=== PATIENT | female | born 1950 | race Caucasian/White ===

== ENCOUNTER → 2018-07-30 | Outpatient (CLI) | payer MEDICARE, SELFPAY | END | disposition home or self-care (01) | PROVIDERS: Family Provider Family Medicine; PCP Family Medicine; Visit Provider Family Medicine | DX: G47.33 Obstructive sleep apnea (adult) (pediatric) (principal) | CPT/HCPCS: 95811 ==

== ENCOUNTER 2021-03-30 13:00 | Outpatient (RCR) | payer MEDICARE, SELFPAY ==
--- NOTE | 2021-01-28 15:16 | HP.PTEVAL_ITS ---
Patient's Visit Information PATRICK CEDILLO is a 70 year old F referred to Physical Therapy by Dr. Madeline Sanz MD with a diagnosis of Chronic right shoulder pain, M25.511. Date of Evaluation: 01/28/21 Physical Therapist: Ben Mendoza - Visit Plan Frequency: 2x /Week Duration: 4 Weeks Plan: Continue with improving right shoulder scapular/RTC strength. Use modalities as needed for pain control. - Subjective Pt. is a 70 y.o. female who has been having right shoulder pain off and on for several of years with no specific injury to her shoulder that she is aware of. She does swim which she is not sure if that made it worse. Pt. has not had any recent imaging of her right shoulder. Pt. denies any numbness or tingling in her right arm and denies any neck pain. Pt. is right handed. She has difficulty with reaching overhead, occasionally reaching behind her back, occasionally sleeping, lifting things overhead, pushing/pulling, swimming, housework, and yard work. Pt. is retired and worked in education prior. Her goal with physical therapy is to find a way to eliminate the discomfort. Pt. rates right shoulder pain at 0/10 currently, at worst 6/10 and describes the pain as achy and dull. She does not take any pain medication. Pt. PMH includes appendectomy and right knee arthroscopic surgery. Her hobbies include swimming, hiking, riding bicycle, reading, and gardening. - Objective Palpation- No tenderness to palpation to right shoulder. Neck AROM- WNL for all motions. AROM right shoulder flexion 168 degrees, abduction 164 degrees, ER 80 degrees, IR 74 degrees. AROM left shoulder 165 degrees, abduction 168 degrees, ER 80 degrees, IR 78 degrees. Right shoulder strength flexion 4+/5, abduction 4+/5, ER 4+/5, IR 5/5, elbow flexion 5/5, elbow extension 5/5. Left shoulder strength flexion 5/5, abduction 5/5, ER 5/5, IR 5/5, elbow flexion 5/5, elbow extension 5/5. Special tests- Painful arc [+], Drop arm [-], Lift off [-], Infraspinatus test [+], Hawkin's Adithya [+], Full can/empty can [+] - Balance/Special Test Scores Quick DASH Score: 20.4525 - Goals Goal 1:: Pt. will be able to reach overhead and out to the side with no right shoulder pain. Goal Time Frame: 4-6 Weeks Goal 2:: Pt. will be able to sleep a full night with no right shoulder pain. Goal Time Frame: 4-6 Weeks Goal 3:: Pt. will improve right shoulder strength to 5/5 for all motions in order to complete ADL's and IADL's. Goal Time Frame: 4-6 Weeks Goal 4:: Pt. will be able to lift at least 20# with right shoulder pain < 3/10. Goal Time Frame: 4-6 Weeks Goal 5:: Pt. will be able to swim with right shoulder pain < 3/10. Goal Time Frame: 4-6 Weeks - Rehabilitation Potential Physical Therapy Diagnosis: Decreased right shoulder strength and pain Rehabilitation Potential: Good - Anticipated Interventions Patient/Client Instruction: Educate patient on: Condition, Plan of Care, Benefits of Fitness Program For the Purpose of:: To decrease pain, To decrease swelling/inflammation, To i ncrease ROM, To improve ability to perform ADL's, To improve performance and independence with ADL's, To improve ability of physical actions for home/community/work/leisure, To assume or resume ADL's, To improve tolerance to ADL's Therapeutic Exercise to Include: Strength training, Active ROM, Scapular Strength/Stabilization Comment: Focus on scapular and RTC strengthening exercises. For the Purpose of:: To decrease pain, To decrease swelling/inflammation, To increase ROM, To improve ability to perform ADL's, To improve performance and independence with ADL's, To improve ability of physical actions for home/community/work/leisure, To assume or resume ADL's, To improve tolerance to ADL's TENS: Yes IF ES: Yes Cryotherapy (ice pack, ice massage): Yes For the Purpose of:: To decrease pain, To decrease swelling/inflammation, To increase ROM, To improve ability to perform ADL's, To improve performance and independence with ADL's, To assume or resume ADL's, To improve tolerance to ADL's Thank you for the opportunity to evaluate your patient. For Medicare and Medicare HMO plans, please review the plan of care and approve it. It will need to be FAXED BACK to us at [phone] for Medicare purposes. For Medicare only, by signing this I certify the plan of care. Please let me know if there are questions or concerns regarding this plan of care. Physician Signature: Date:
--- NOTE | 2021-03-30 13:25 | HP.PTDCSUM ---
It has been my pleasure to treat PTARICK CEDILLO referred by Dr. Madeline Sanz MD, with the diagnosis of Chronic right shoulder pain, M25.511 for a total of 8 visit(s). Discharge Date: 03/30/21 Please see the following information for a summary of their discharge status. Subjective: Getting better. Loved wortking with Ziyad. Still has intermittent discomfort and has to modify somethings like less rotation in swimming stroke. Back to swimming crawl stroke 10 lengths out of a normal 12-15 when healthy. Sleeping is not a problem anymore adn feels like she has tools to get back where she needs to be. Exercising ball OK. Dressing is normal. Right Shoulder Pain Intensity (Out of 10): 0 % Improvement: 95 Objective/Function: 5/5 shoulder strength with only some discomfort with ext rotation transiently. Full and symmetrical AROM shoulders flexion, ext rot, IR. Activities much improved and getting back to normal. Goal 1:: Pt. will be able to reach overhead and out to the side with no right shoulder pain. Goal Progress: Goal Met Goal 2:: Pt. will be able to sleep a full night with no right shoulder pain. Goal Progress: Goal Met Goal 3:: Pt. will improve right shoulder strength to 5/5 for all motions in order to complete ADL's and IADL's. Goal Progress: Goal Met Goal 4:: Pt. will be able to lift at least 20# with right shoulder pain < 3/10. Goal Progress: Progressing Goal 5:: Pt. will be able to swim with right shoulder pain < 3/10. Goal Progress: Goal Met Plan: d/c to [facility] vended for ex If there are questions or concerns regarding this patient's physical therapy, please feel free to call me at [phone]. Thank you for the referral of this patient. Sincerely, Armani Blount, DPT, OCS, CSCS Balance/Gait/Functional tests - Balance/Special Test Scores Quick DASH Score: 4.5450
== END 2021-03-30 19:00 | disposition home or self-care (01) ==
LOC: PT 13:00
PROVIDERS: PCP Internal Medicine; Referring Provider Internal Medicine; Visit Provider Internal Medicine
DX: M25.511 Pain in right shoulder (principal); G89.29 Other chronic pain
CPT/HCPCS: 97110; 97161; 97164

== ENCOUNTER 2023-06-13 15:30 | Outpatient (RCR) | payer MEDICARE, SELFPAY ==
--- NOTE | 2023-03-28 14:00 | HP.PTEVAL_ITS ---
Patient's Visit Information Visit Information Visit Information: PATRICK CEDLILO is a 72 year old F referred to Physical Therapy by KACY Bernal with a diagnosis of HIP PAIN. Date of Evaluation: 03/28/23 Physical Therapist: Amrit Lindsay, PT, Cert MDT, OCS Visit Plan Frequency: 2x /Week Duration: 4 Weeks Plan: PT INTERVETIONS MANUAL THERAPY STM ,STICK I T BAND,US ,CP ,STRETCHING HIP , STRENGTHENING HIP ( GLUT MEDIUS) AND FUNCTIONAL STRENGTHENING/CORE Subjective Subjective: This 72 y/o female presents to physical therapy with right hip. Pain ~ 2 weeks which was insidious onset. Started when getting out of bed. Seen DR x- rays of hip -. Location of pain glut region. Patient has h/o stiffness in back . Patient pain is deep shooting pain . Aggravating stairs ascending ,lift hip ,extended sitting to get up. . Alleviating factors walking ,standing and moving. Patient dances throughout week. Patient is a avid swimmer. Denies paresthesia/tingling-. Coughing/sneezing-. Bowel/bladder- Sleeping okay only when getting up in middle of night painful. No medication ,just over counter. Ibuprophin helps pain. Patient condition affects QOL and function and working out/housework. Patient goal be active no pain. SOCIAL: VOCATION: retired Pain Right Buttocks: Pain Intensity (Out of 10): 5 Pain Intensity Range: 10 Objective Objective: POSTURE: WFL GAIT: reciprocal patter PALPTION: : tender I T BAND ,greater trochanteric ,and piriformis NEURO: denies paresthesia/tingling ,reflexes intact FLEXABLITY: hamstrings ,piriformis ,IT BAND min tight AROM HIP: flexion 110 degrees ,hip abd 45 degrees ,IR 50 degrees slight pain LUMBAR ROM; flexion min loss ,extension min/mod loss ,side glides min glides MMT: quads/hams 4/5 ,hip flexion 4/5 glut medius 23# PEAK FORCE Special Tests L/S Slump test left side: Negative L/S Slump test right side: Negative L/S Left Straight Leg Raise: Negative L/S Right Straight Leg Raise: Negative Lumbar Standing: Flexion - Mechanical Response: No effect Lumbar Standing: Flexion - Symptoms During Testing: No effect Lumbar Standing: Flexion - Symptoms After Testing: No effect Lumbar Standing: Extension - Mechanical Response: No effect Lumbar Standing: Extension - Symptoms During Testing: No effect Lumbar Standing: Extension - Symptoms After Testing: No effect Lumbar Standing: Right Side Glides - Mechanical Response: No effect Lumbar Standing: Right Side [place] - Symptoms During Testing: No effect Lumbar Standing: Right Side [place] - Symptoms After Testing: No effect Lumbar Standing: Left Side [place] - Mechanical Response: No effect Lumbar Standing: Left Side [place] - Symptoms During Testing: No effect Lumbar Standing: Left Side [place] - Symptoms After Testing: No effect R Hip Scour: Negative R Hip Quadrant - Intraarticular Pathology: Negative R Hip FADDIR - Labrum: Negative R Hip Trendelenberg - Glut Medius: Negative R Hip Caro - IT Band: Negative Balance/Special Test Scores Lower Extremity Functional Score: 45 Goals Goal 1:: Patient to be I with HEP for hip Goal Time Frame: 4-6 Weeks Goal 2:: Patient to demonstrate 50% improvement with less pain and improved function Goal Time Frame: 4-6 Weeks Goal 3:: Patient to increase peak force of hip glut Medius by 5-10 # to improve gait Goal Time Frame: 4-6 Weeks Goal 4:: Patient to improve LFES score by by 5-10 Points to improve QOL Goal Time Frame: 4-6 Weeks Goal 5:: Patient to minimize irritability with less tenderness to improve function Goal Time Frame: 4-6 Weeks Rehabilitation Potential Physical Therapy Diagnosis: Patient has right hip pain with greater trochanter tender of bursa and I T BAND along with weakness glut Medius affects stairs and incline and hobbies thus benefit from skilled PT Rehabilitation Potential: Fair Anticipated Interventions Patient/Client Instruction: Educate patient on: Condition and Plan of Care For the Purpose of:: To decrease pain, To increase ROM, To improve muscle performance and motor function, To improve ability to perform ADL's, To increase tolerance to activity/condition/position, To improve ability of physical actions for home/community/work/leisure, To improve health of tissue, To decrease soft tissue restriction, To increase flexibility/ROM, To improve endurance and To improve balance Therapeutic Exercise to Include: Strength training, Endurance training, Balance training, Flexibilty training, Active ROM and Dynamic Lumbar Stabilization Comment: DLS For the Purpose of:: To decrease pain, To increase ROM, To improve muscle performance and motor function, To improve ability to perform ADL's, To increase tolerance to activity/condition/position, To improve ability of physical actions for home/community/work/leisure, To improve health of tissue, To decrease soft tissue restriction, To increase flexibility/ROM and To improve endurance Manual Therapy Techniques to Include: Mobilization and Soft tissue mobilization Comment: STICK IT BAND For the Purpose of:: To decrease pain, To increase ROM, To improve nutrient delivery to tissue, To increase oxygenation perfusion, To improve health of tissue and To decrease soft tissue restriction TENS: Yes IF ES: Yes Other electric stimulation: Yes Cryotherapy (ice pack, ice massage): Yes Thermo therapy (hot pack): Yes Ultrasound (thermal/non thermal): Yes For the Purpose of:: To decrease pain, To increase ROM, To improve nutrient delivery to tissue, To increase oxygenation perfusion, To improve health of tissue and To decrease soft tissue restriction Text: Thank you for the opportunity to evaluate your patient. For Medicare and Medicare HMO plans, please review the plan of care and approve it. It will need to be FAXED BACK to us at [phone] for Medicare purposes. For Medicare only, by signing this I certify the plan of care. Please let me know if there are questions or concerns regarding this plan of care. Physician Signature: Date:
--- NOTE | 2023-03-28 14:58 | HP.PTEVAL ---
Patient's Visit Information Visit Information Visit Information: PATRICK CEDILLO is a 72 year old F referred to Physical Therapy by KACY Bernal with a diagnosis of RIGHT HIP PAIN. Date of Evaluation: 03/28/23 Physical Therapist: Amrit Lindsay, PT, Cert MDT, OCS Visit Plan Frequency: 2x /Week Duration: 4 Weeks Plan: PT INTERVETIONS MANUAL THERAPY STM ,STICK I T BAND,US ,CP ,STRETCHING HIP , STRENGTHENING HIP ( GLUT MEDIUS) AND FUNCTIONAL STRENGTHENING/CORE Subjective Subjective: This 72 y/o female presents to physical therapy with right hip. Pain ~ 2 weeks which was insidious onset. Started when getting out of bed. Seen DR x-rays of hip -. Location of pain glut region. Patient has h/o stiffness in back . Patient pain is deep shooting pain . Aggravating stairs ascending ,lift hip ,extended sitting to get up. . Alleviating factors walking ,standing and moving. Patient dances throughout week. Patient is a avid swimmer. Denies paresthesia/tingling-. Coughing/sneezing-. Bowel/bladder- Sleeping okay only when getting up in middle of night painful. No medication ,just over counter. Ibuprophin helps pain. Patient condition affects QOL and function and working out/housework. Patient goal be active no pain. SOCIAL: VOCATION: retired Pain Right Buttocks: Pain Intensity (Out of 10): 5 Pain Intensity Range: 10 Objective Objective: POSTURE: WFL GAIT: reciprocal patter PALPTION: : tender I T BAND ,greater trochanteric ,and piriformis NEURO: denies paresthesia/tingling ,reflexes intact FLEXABLITY: hamstrings ,piriformis ,IT BAND min tight AROM HIP: flexion 110 degrees ,hip abd 45 degrees ,IR 50 degrees slight pain LUMBAR ROM; flexion min loss ,extension min/mod loss ,side glides min glides MMT: quads/hams 4/5 ,hip flexion 4/5 glut medius 23# PEAK FORCE Special Tests L/S Slump test left side: Negative L/S Slump test right side: Negative L/S Left Straight Leg Raise: Negative L/S Right Straight Leg Raise: Negative Lumbar Standing: Flexion - Mechanical Response: No effect Lumbar Standing: Flexion - Symptoms During Testing: No effect Lumbar Standing: Flexion - Symptoms After Testing: No effect Lumbar Standing: Extension - Mechanical Response: No effect Lumbar Standing: Extension - Symptoms During Testing: No effect Lumbar Standing: Extension - Symptoms After Testing: No effect Lumbar Standing: Right Side Glides - Mechanical Response: No effect Lumbar Standing: Right Side [place] - Symptoms During Testing: No effect Lumbar Standing: Right Side [place] - Symptoms After Testing: No effect Lumbar Standing: Left Side [place] - Mechanical Response: No effect Lumbar Standing: Left Side [place] - Symptoms During Testing: No effect Lumbar Standing: Left Side [place] - Symptoms After Testing: No effect R Hip Scour: Negative R Hip Quadrant - Intraarticular Pathology: Negative R Hip FADDIR - Labrum: Negative R Hip Trendelenberg - Glut Medius: Negative R Hip Caro - IT Band: Negative Balance/Special Test Scores Lower Extremity Functional Score: 45 Goals Goal 1:: Patient to be I with HEP for hip Goal Time Frame: 4-6 Weeks Goal 2:: Patient to demonstrate 50% improvement with less pain and improved function Goal Time Frame: 4-6 Weeks Goal 3:: Patient to increase peak force of hip glut Medius by 5-10 # to improve gait Goal Time Frame: 4-6 Weeks Goal 4:: Patient to improve LFES score by by 5-10 Points to improve QOL Goal Time Frame: 4-6 Weeks Goal 5:: Patient to minimize irritability with less tenderness to improve function Goal Time Frame: 4-6 Weeks Rehabilitation Potential Physical Therapy Diagnosis: Patient has right hip pain with greater trochanter tender of bursa and I T BAND along with weakness glut Medius affects stairs and incline and hobbies thus benefit from skilled PT Rehabilitation Potential: Fair Anticipated Interventions Patient/Client Instruction: Educate patient on: Condition and Plan of Care For the Purpose of:: To decrease pain, To increase ROM, To improve muscle performance and motor function, To improve ability to perform ADL's, To increase tolerance to activity/condition/position, To improve ability of physical actions for home/community/work/leisure, To improve health of tissue, To decrease soft tissue restriction, To increase flexibility/ROM, To improve endurance and To improve balance Therapeutic Exercise to Include: Strength training, Endurance training, Balance training, Flexibilty training, Active ROM and Dynamic Lumbar Stabilization Comment: DLS For the Purpose of:: To decrease pain, To increase ROM, To improve muscle performance and motor function, To improve ability to perform ADL's, To increase tolerance to activity/condition/position, To improve ability of physical actions for home/community/work/leisure, To improve health of tissue, To decrease soft tissue restriction, To increase flexibility/ROM and To improve endurance Manual Therapy Techniques to Include: Mobilization and Soft tissue mobilization Comment: STICK IT BAND For the Purpose of:: To decrease pain, To increase ROM, To improve nutrient delivery to tissue, To increase oxygenation perfusion, To improve health of tissue and To decrease soft tissue restriction TENS: Yes IF ES: Yes Other electric stimulation: Yes Cryotherapy (ice pack, ice massage): Yes Thermo therapy (hot pack): Yes Ultrasound (thermal/non thermal): Yes For the Purpose of:: To decrease pain, To increase ROM, To improve nutrient delivery to tissue, To increase oxygenation perfusion, To improve health of tissue and To decrease soft tissue restriction Text: Thank you for the opportunity to evaluate your patient. For Medicare and Medicare HMO plans, please review the plan of care and approve it. It will need to be FAXED BACK to us at [phone] for Medicare purposes. For Medicare only, by signing this I certify the plan of care. Please let me know if there are questions or concerns regarding this plan of care. Physician Signature: Date:
--- NOTE | 2023-06-13 16:05 | HP.PTDCSUM_ITS ---
Discharge Summary D/C summary: It has been my pleasure to treat PATRICK CEDILLO referred by IBAN Bernal C, with the diagnosis of RIGHT HIP PAIN for a total of 9 visit(s). Discharge Date: 06/13/23 Please see the following information for a summary of their discharge status. Subjective Subjective: I have no pain PLACE CHANGE ROOF BOLTER did a great job Pain Right Buttocks: Pain Intensity (Out of 10): 0 Overall Improvement % Improvement: 80 Objective Objective/Function: POSTURE: WFL GAIT: reciprocal pattern PALPTION: : absent NEURO: denies paresthesia/tingling ,reflexes intact FLEXABLITY: hamstrings ,piriformis ,IT BAND min tight AROM HIP: flexion 130 degrees ,hip abd 45 degrees ,IR 50 degrees slight pain LUMBAR ROM; flexion min loss ,extension min/mod loss ,side glides min glides MMT: quads/hams 4/5 ,hip flexion 39.1 glut medius 49.2 PEAK FORCE Goals Goal 1:: Patient to be I with HEP for hip Goal Progress: Goal Met Goal 2:: Patient to demonstrate 50% improvement with less pain and improved func tion Goal Progress: Goal Met Goal 3:: Patient to increase peak force of hip glut Medius by 5-10 # to improve gait Goal Progress: Goal Met Goal 4:: Patient to improve LFES score by by 5-10 Points to improve QOL Goal Progress: Goal Met Goal 5:: Patient to minimize irritability with less tenderness to improve function Plan Plan: d/c to HOME and [facility] program D/C Information Discharge Comments: HEP d/c sentence: If there are questions or concerns regarding this patient's physical therapy, please feel free to call me at [phone]. Thank you for the referral of this patient. Sincerely, Amrit Lindsay, PT, Cert MDT, OCS Balance/Gait/Functional tests Balance/Special Test Scores Lower Extremity Functional Score: 70 Improvement % Improvement: 80
== END 2023-06-13 19:00 | disposition home or self-care (01) ==
LOC: PT 15:30
PROVIDERS: PCP Family Medicine; Referring Provider Nurse Practitioner Family; Visit Provider Nurse Practitioner Family
DX: M25.551 Pain in right hip (principal)
CPT/HCPCS: 97110; 97162; 97530

== ENCOUNTER 2025-01-08 15:00 | Outpatient (RCR) | payer MEDICARE, SELFPAY ==
--- NOTE | 2024-10-17 16:57 | HP.PTEVAL_ITS ---
Patient's Visit Information Visit Information Visit Information: PATRICK CEDILLO is a 74 year old F referred to Physical Therapy by Dr. Cedrick Nobles DPM with a diagnosis of L achilles tendinosis. Date of Evaluation: 10/17/24 Physical Therapist: Kosta Francisco, PT, ATC Visit Plan Frequency: 1-2 times per week Duration: 2-4 Weeks Plan: L ankle PROM/mobs, DTR, stick rollout, hawks asset protection professional fanning, and HEP Subjective Subjective: Pt reports her L Achilles tendon has been sore for approximately 3 weeks. Pt reports she likes to dance and exercise, and believes this may have caused her pain. pt notes her doctor told her to wear some orthotics and lace up shoes which she plans to start doing. Pt reports she has noticed decreased pain lately as she has been applying a get to reduce her swelling, and she has been massaging her muscles to make them looser. Pt also notes she has been using ice on occasion to aid with her pain. No PMHx. Pt denies any tingling or numbness in her L LE. Pt has stairs at home, but has to negotiate them one step at a time occasionally. 1/10 pain while sitting here at rest, 2/10 pain at worst (when she presses on it) Pain L achilles: Pain Intensity (Out of 10): 1 Pain Intensity Range: 2 Objective Objective: Neuro: B LE sensation is WNL to light touch. Palpation: significant tissue enlargement along L mid achilles tendon. Painful with palpation MMT: R ankle DF= 25, PF= 40;L ankle DF= 25, PF= 16 #F ROM: R ankle DF= 0, PF= 45;L ankle DF= -5, PF= 45 degrees TU sec Balance/Special Test Scores Lower Extremity Functional Score: 41 Goals Goal 1:: Pt will be I with HEP Goal Time Frame: 2-4 Weeks Goal 2:: Increase L ankle DF ROM x 10 degrees to aid with decreasing pain Goal Time Frame: 2-4 Weeks Goal 3:: Increase L ankle PF strength x 5-10 #F to aid with return to dancing. Goal Time Frame: 2-4 Weeks Rehabilitation Potential Physical Therapy Diagnosis: Pt has L achilles pain, limited DF ROM, and L ankle weakness secondary to L achilles tendinosis Rehabilitation Potential: Good Anticipated Interventions Patient/Client Instruction: Educate patient on: Condition and Plan of Care For the Purpose of:: To improve self management Therapeutic Exercise to Include: Flexibilty training, Passive ROM and Active ROM For the Purpose of:: To decrease pain, To increase ROM and To improve muscle performance and motor function Manual Therapy Techniques to Include: Mobilization, Passive ROM and Soft tissue mobilization For the Purpose of:: To decrease pain and To increase ROM Text: Thank you for the opportunity to evaluate your patient. For Medicare and Medicare HMO plans, please review the plan of care and approve it. It will need to be FAXED BACK to us at [phone] for Medicare purposes. For Medicare only, by signing this I certify the plan of care. Please let me know if there are questions or concerns regarding this plan of care. Physician Signature: Date:
--- NOTE | 2025-01-09 11:01 | HP.PTDCSUM ---
Discharge Summary D/C summary: It has been my pleasure to treat PATRICK CEDILLO referred by Dr. 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 Discharge Date: Please see the following information for a summary of their discharge status. Subjective Subjective: Pt ready for HEP Pain L achilles: Pain Intensity (Out of 10): 0 Overall Improvement % Improvement: 65 Objective Objective/Function: Pt is now I with routine Goals Goal 1:: Pt will be I with HEP Goal Progress: Goal Met Goal 2:: Increase L ankle DF ROM x 10 degrees to aid with decreasing pain Goal Progress: Progressing Goal 3:: Increase L ankle PF strength x 5-10 #F to aid with return to dancing. Goal Progress: Goal Met Plan Plan: Discharge to gym routine D/C Information d/c sentence: If there are questions or concerns regarding this patient's physical therapy, please feel free to call me at [phone]. Thank you for the referral of this patient. Sincerely, Kosta Francisco, PT, ATC Balance/Gait/Functional tests Balance/Special Test Scores Lower Extremity Functional Score: 41 Improvement % Improvement: 65
== END 2025-01-08 19:00 | disposition home or self-care (01) ==
LOC: PT 15:00
PROVIDERS: PCP Family Medicine; Referring Provider Podiatrist Foot & Ankle Surgery; Visit Provider Podiatrist Foot & Ankle Surgery
DX: M67.88 Other specified disorders of synovium and tendon, other site (principal); Q82.8 Other specified congenital malformations of skin
CPT/HCPCS: 97110; 97140; 97161; 97530